=== PATIENT | female | born 1965 | race Caucasian/White ===

== ENCOUNTER → 2018-03-18 | Outpatient (CLI) | payer BC ==
--- NOTE | 2018-03-19 09:19 | ECHOF ---
Referral Reason:R00.2 Palpitations MEASUREMENTS -------- HEIGHT: 160.0 cm WEIGHT: 51.3 kg BP: RVIDd: 2.5 cm (< 3.3) IVSd: 0.5 cm (0.6 - 1.1) LVIDd: 4.9 cm (3.9 - 5.3) LVPWd: 0.7 cm (0.6 - 1.1) IVSs: 0.9 cm LVIDs: 3.0 cm LVPWs: 1.1 cm LAESV Index (A-L): 26.24 ml/m Ao Diam: 2.7 cm (2.0 - 3.7) AV Cusp: 2.1 cm (1.5 - 2.6) LA Diam: 3.2 cm (2.7 - 3.8) MV EXCURSION: 12.451 mm (> 18.000) MV EF SLOPE: 96 mm/s (70 - 150) EPSS: 0.4 cm MV E Kvng: 0.92 m/s MV DecT: 163 ms MV A Kvng: 0.65 m/s MV E/A Ratio: 1.40 AR PHT: 213 ms RAP: 5.00 mmHg RVSP: 29.14 mmHg FINDINGS -------- Sinus rhythm. This was a technically good study. The left ventricular size is normal. Left ventricular wall thickness is normal. Overall left vent ricular systolic function is normal with, an EF between 55 - 60 %. The right ventricle is normal in size and function. The left atrium is normal in size. The right atrium is normal in size. Trace amount of aortic regurgitation. Mild mitral regurgitation is present. Mild tricuspid regurgitation present. The right ventricular systolic pressure, as measured by Doppl er, is 29.14mmHg. Trace/mild (physiologic) pulmonic regurgitation. The aortic root size is normal. Normal inferior vena cava with normal inspiratory collapse consistent with estimated right atrial pre ssure of 5 mmHg. The pericardium is normal. CONCLUSIONS -------- 1. Sinus rhythm. 2. This was a technically good study. 3. The left ventricular size is normal. 4. Left ventricular wall thickness is normal. 5. Overall left ventricular systolic function is normal with, an EF between 55 - 60 %. 6. The right ventricle is normal in size and function. 7. The left atrium is normal in size. 8. The right atrium is normal in size. 9. Trace amount of aortic regurgitation. 10. Mild mitral regurgitation is present. 11. Mild tricuspid regurgitation present. 12. The right ventricular systolic pressure, as measured by Doppler, is 29.14mmHg. 13. Trace/mild (physiologic) pulmonic regurgitation. 14. The aortic root size is normal. 15. Normal inferior vena cava with normal inspiratory collapse consistent with estimated right atrial pressure of 5 mmHg. 16. The pericardium is normal. SETTER MACHINE: Jayleen Alfaro RDCS
== END | disposition home or self-care (01) ==
LOC: RADECHMAIN 12:03
PROVIDERS: ATTEND Family Medicine
DX: I08.1 Rheumatic disorders of both mitral and tricuspid valves (principal); I49.3 Ventricular premature depolarization; R00.0 Tachycardia, unspecified
CPT/HCPCS: 93270; 93271; 93306

== ENCOUNTER → 2019-03-05 | Outpatient (CLI) | payer BC ==
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
== END | disposition home or self-care (01) ==
LOC: NEUROMAIN 08:42
PROVIDERS: ATTEND Psychiatry & Neurology Neurology
DX: R42 Dizziness and giddiness (principal)
CPT/HCPCS: 92537; 92540

== ENCOUNTER → 2019-04-08 | Outpatient (CLI) | payer BC ==
--- NOTE | 2019-04-10 16:16 | MR ---
EXAMINATION TYPE: MR cervical spine wo con DATE OF EXAM: 04/08/2019 COMPARISON: CT 10/06/2018 HISTORY: Arnold Chiari TECHNIQUE: Multiplanar, multisequence images of the cervical spine were acquired. C2-C3: No evidence for degenerative disc disease. No disc bulge/herniation or protrusion. No Canal stenosis. Foramina are patent bilaterally. C3-C4: Uncovertebral joint hypertrophy contributes to cause some mild foraminal encroachment right. P osterior extension of endplate disc complex causes anterior mass effect on the thecal sac, mild centr al stenosis. C4-5: Posterior broad-based disc bulge causes mild anterior mass effect on the thecal sac, possibly c ontact the anterior cervical cord. No significant foraminal encroachment. C5-C6: Posterior broad-based disc bulge contacts the anterior cervical cord, there is mild to moderat e central canal stenosis. Uncovertebral joint hypertrophy causes some right-sided foraminal encroachm ent. C6-C7: Posterior broad-based disc bulge causes anterior mass effect on the thecal sac. There is mild to moderate central stenosis. Uncovertebral joint hypertrophy results in foraminal encroachment bilat erally. C7-T1: No evidence for degenerative disc disease. No disc bulge/herniation or protrusion. No Canal stenosis. Foramina are patent bilaterally. Cervical segments are intact. Cervical spinal cord is of normal signal. Craniovertebral junction re lationships are within normal limits. Cervical vertebral bodies show preserved height. Mild spondylo sis is present especially at C3-4, minimal retrolisthesis grade 1 C3-4. There is mild endplate discog enic marrow signal change present. Loss of disc height and signal present C4-5, C5-6, C6-7 compatible disc desiccation, degenerative disc disease. IMPRESSION: Multilevel degenerative disc disease, foraminal encroachment
== END | disposition home or self-care (01) ==
LOC: RADMRIMAIN 08:38
PROVIDERS: ATTEND Psychiatry & Neurology Neurology
DX: M50.30 Other cervical disc degeneration, unspecified cervical region (principal); G95.0 Syringomyelia and syringobulbia
CPT/HCPCS: 72141

== ENCOUNTER → 2019-07-16 | Outpatient (CLI) | payer BC ==
--- NOTE | 2019-07-16 13:19 | MR ---
EXAMINATION TYPE: MR angio neck wo/w con DATE OF EXAM: 07/16/2019 COMPARISON: None HISTORY: Demyelinating disease / Dizziness TECHNIQUE: Multiplanar, multi-sequence imaging as well as [id number] and phase contrast imaging w as performed extracranial vasculature of the neck. Standard multiplanar, multisequence MRI [facility] protocol utilizing 5.5 mL intravenous Gadavist gadolinium contrast. 3-D reformatted images and maximum intensity projection reformatted images were submitted for evaluation. FINDINGS: RIGHT CAROTID SYSTEM: The proximal internal carotid artery demonstrates a 70% stenosis at its origin and extends approximately 6 millimeters distally. The remaining portions of the right internal carot id artery demonstrates a normal size and demonstrates no significant narrowing. The right common car otid artery and external carotid artery are unremarkable. LEFT CAROTID SYSTEM: At the origin of the left internal carotid artery there is less than 50% stenos is extending approximately 4 millimeters distally. The remaining portions of the left internal carotid artery demonstrates a normal size and demonstrates no significant narrowing. The left common carotid artery and external carotid artery ar e unremarkable. The origins of the great vessels and vertebral arteries appear unremarkable. The vertebral arteries are codominant IMPRESSIONS: 1. Significant stenosis involving the proximal right internal carotid artery estimated at 70% extend ing a total distance of 6 mm from the carotid bulb 2. No significant stenosis involving the left carotid artery system.
--- NOTE | 2019-07-16 15:30 | MR ---
EXAMINATION TYPE: MR brain wo/w con DATE OF EXAM: 07/16/2019 COMPARISON: NONE HISTORY: Demyelinating disease / Dizziness TECHNIQUE: Multiplanar, multisequence images of the brain and brainstem is performed without and with IV contras t, utilizing 5.5 mL intravenous Gadavist . FINDINGS: Diffusion weighted images demonstrate no evidence of a recent infarct or other diffusion ab normality. There is no extra-axial fluid collection. There are a few scattered foci of T2/FLAIR hyperintensity in the subcortical and periventricular whit e matter. The largest is seen in the left parietal lobe in the periatrial white matter measuring 0.4 x 0.4 cm on series 501 (FLAIR axial fat-sat) image 18. There are approximately 2 foci on the right an d 8 foci in the left. The ventricular system and cisternal spaces are normal in size and appearance. The brain volume is age appropriate. Midline structures demonstrate normal morphology. The craniocervical junction appears within normal limits. Post contrast images demonstrate no abnormal enhancement. The dural venous sinuses appear pa tent. The visualized sinuses are clear and the globes are intact. There is slight leftward nasal sept al deviation. IMPRESSION: 1. Few scattered foci of nonspecific white matter change (approximately 10 in number in the supratent orial white matter). No evidence of enhancement or restricted diffusion to indicate active demyelinat ion. 2. No acute infarct, midline shift or mass effect. No abnormal intracranial enhancement.
== END | disposition home or self-care (01) ==
LOC: RADMRIMAIN 11:08
PROVIDERS: ATTEND Psychiatry & Neurology Neurology
DX: R90.89 Other abnormal findings on diagnostic imaging of central nervous system (principal); G37.9 Demyelinating disease of central nervous system, unspecified; I65.21 Occlusion and stenosis of right carotid artery
CPT/HCPCS: 70549; 70553; A9585

== ENCOUNTER → 2022-03-06 | Outpatient (CLI) | payer BC ==
--- NOTE | 2022-03-06 09:40 | BD ---
EXAMINATION TYPE: Axial Bone Density DATE OF EXAM: 03/06/2022 COMPARISON: NONE CLINICAL HISTORY: 56 years year old Female. ICD-10 CODE: Z13.820 SCREENING FOR OSTEOPOROSIS Height: 62.5 IN Weight: 112 LBS RISK FACTORS HISTORY OF: Active: YES Diet low in dairy products/other sources of calcium: YES Postmenopausal woman: AGE 50 MEDICATIONS: Additional Medications: SYMBICORT, CRESTOR, EXAM MEASUREMENTS: Bone mineral densitometry was performed using the [employer] [facility]. Bone mineral density as measured about the Lumbar spine is: ----- L1-L4(G/cm2): 0.894 T Score Values are as follows: ----- L1: -2.5 ----- L2: -2.4 ----- L3: -2.2 ----- L4: -2.6 ----- L1-L4: -2.4 Bone mineral density BASELINE Bone mineral density about the R hip (g/cm2): 0.580 Bone mineral density about the L hip (g/cm2): 0.588 T Score values are as follows: -----R Neck: -3.3 -----L Neck: -3.2 -----R Total: -2.6 -----L Total: -3.0 Bone mineral density BASELINE FRAX%s: The graph provided illustrates a 14.4 chance for a major osteoporotic fx and a 5.1 chance for the hips probability for fx in 10 years time. IMPRESSION: Osteoporosis (T Score less than -2.5). There is increased fracture risk and therapy is usually indicated based on age. Re-Screen 1-2 years. NOTE: T-SCORE=SD OF THE YOUNG ADULT MEAN.
== END | disposition home or self-care (01) ==
LOC: RADBDWWP 09:05
PROVIDERS: ATTEND Family Medicine
DX: M81.0 Age-related osteoporosis without current pathological fracture (principal)
CPT/HCPCS: 77080

== ENCOUNTER → 2024-03-11 | Outpatient (CLI) | payer BC ==
--- NOTE | 2024-03-11 16:06 | BD ---
EXAMINATION TYPE: Axial Bone Density DATE OF EXAM: 03/11/2024 CLINICAL HISTORY: 58 years old Female. ICD-10 CODE: Z78.0 ASYMPTOMATIC MENOPAUSAL STATE Height: 63 Weight: 113 FRAX RISK QUESTIONS: Family History (Parent hip fracture): no History of Fracture in Adulthood: no Secondary Osteoporosis: no RISK FACTORS HISTORY OF: Surgery to Spine/Hip(right/left)/Wrist (right/left): no MEDICATIONS: Thyroid Medications: no Osteoporosis Medications: no EXAM MEASUREMENTS: Bone mineral densitometry was performed using the [employer] System. Bone mineral density as measured about the Lumbar spine is: ----- L1-L4(G/cm2): 0.882 T Score Values are as follows: ----- L1: -2.5 ----- L2: -2.6 ----- L3: -2.1 ----- L4: -2.8 ----- L1-L4: -2.5 Z Score Values are as follows: ----- L1: -0.8 ----- L2: -0.9 ----- L3: -0.4 ----- L4: -1.1 ----- L1-L4: -0.8 Bone mineral density has: Decreased -1.3% since study of: 03/06/2022 Bone mineral density about the R hip (g/cm2): 0.667 Bone mineral density about the L hip (g/cm2): 0.623 T Score values are as follows: -----R Neck: -3.3 -----L Neck: -3.3 -----R Total: -2.7 -----L Total: -3.1 Z Score values are as follows: -----R Neck: -1.8 -----L Neck: -1.8 -----R Total: -1.4 -----L Total: -1.8 Bone mineral density has: Decreased -1.1% since study of: 03/06/2022 FRAX%s: The graph provided illustrates a 15.6% chance for a major osteoporotic fx and a 5.6% chance f or the hips probability for fx in 10 years time. IMPRESSION: Osteopenia (T Score between -2.5 and -1). There is slightly increased risk of fracture and the patient may be considered for treatment. Re-Screen 2-5 years. NOTE: T-SCORE=SD OF THE YOUNG ADULT MEAN.
== END | disposition home or self-care (01) ==
LOC: RADBDWWP 08:35
PROVIDERS: ATTEND Family Medicine
DX: M85.88 Other specified disorders of bone density and structure, other site (principal); Z78.0 Asymptomatic menopausal state
CPT/HCPCS: 77080